=== PATIENT | female | born 1970 | race Caucasian/White ===

== ENCOUNTER 2016-11-11 22:34 | Emergency (ER) | payer OTHER ==
[~2016-11-11] VITALS: Ht 160 cm; Wt 46.3 kg
[~2016-11-11 22:34] MED LIST: LIORESAL 10MG T10 MG PO; MOTRIN 600 MG600 MG PO; PERCOCET 325 MG1 TA2 PO
--- NOTE | 2016-11-12 00:39 | ED DYSPNEA/ASTHMA COMPLAINT ---
History of Present Illness General Chief Complaint: General Adult Stated Complaint: PT IS HAVING A PROBLEM BREATHING Source: patient, family Exam Limitations: no limitations Vital Signs & Intake/Output Vital Signs & Intake/Output Vital Signs Date Time Temp Pulse Resp B/P B/P Pulse O2 O2 Flow FiO2 Mean Ox Delivery Rate 11/12 0153 98.1 76 16 122/76 97 Room Air 11/12 0108 98 Room Air 11/11 2240 98.1 80 18 129/74 98 Room Air ED Intake and Output 11/12 0000 11/11 1200 Intake Total Output Total Balance Patient 102 lb Weight Allergies Coded Allergies: MDX - PCN (penicillin) (PCN (PENICILLIN)) (Intermediate, HIVES 08/06/14) Reconcile Medications Baclofen (Lioresal) 10 MG TABLET 1 TAB PO TIDPRN PRN muscle strain Ibuprofen (Motrin 600 MG Tab) 600 MG TABLET 1 TAB PO Q6P PRN PAIN OXYCODONE HCL/ACETAMINOPHEN (Percocet 5-325 MG Tablet) 325 MG/5 MG TAB 1-2 TAB PO Q4-6 PRN PRN PAIN Triage Note: PT STATES THAT SHE FELL ON 10/21 AND HURT HER L RIB CAGE, WAS SEEN 3 X AT [facility] AND HAD CXR WHICH WAS NEGATIVE,.PT STATES THAT SHE CONTINUES TO HAVE PAIN AND FEELS SOB, O2 SAT 98 % ON RA. PT STATES THAT SHE IS NOT GETTING THE ANSWERS SHE WANTS Triage Nurses Notes Reviewed? yes Onset: Abrupt Duration: week(s):, waxing and waning Timing: single episode today Activities at Onset: fall Modifying Factors: Improves With: pain medication. Associated Symptoms: left rib cage pain : No Patient currently breastfeeds: No HPI: 46-year-old woman in prior good health presents with left lower rib cage discomfort. She states that she fell at work on October 21. She developed pain on the left side of her chest wall afterwards. She had 2 sets of x-rays that were all negative for fractures or pneumothorax. She presents tonight with continued throbbing sharp left lower rib cage pain. Her pain does not radiate. It is not associated with fever or chills nausea vomiting or diarrhea. Past History Travel History Traveled to [place] past 21 day No Medical History Any Pertinent Medical History? see below for history Neurological: NONE EENT: NONE Cardiovascular: NONE Respiratory: NONE Gastrointestinal: NONE Hepatic: NONE Renal: NONE Musculoskeletal: NONE Psychiatric: NONE Blood Disorders: NONE Cancer(s): NONE BIOLOGY SPECIMEN TECHNICIAN/Reproductive: NONE Tetanus Vaccine: Surgical History Surgical History: none Psychosocial History What is your primary language Albanian Tobacco Use: Current Daily Use Daily Tobacco Use Amount/Type: => 5 Cigarettes daily ETOH Use: denies use Illicit Drug Use: denies illicit drug use Family History Hx Contributory? No Review of Systems Review of Systems Constitutional: Reports: no symptoms. EENTM: Reports: no symptoms. Respiratory: Reports: no symptoms. Cardiovascular: Reports: no symptoms. GI: Reports: no symptoms. Genitourinary: Reports: no symptoms. Musculoskeletal: Reports: no symptoms. Skin: Reports: no symptoms. Neurological/Psychological: Reports: no symptoms. Hematologic/Endocrine: Reports: no symptoms. Immunologic/Allergic: Reports: no symptoms. All Other Systems: Reviewed and Negative Physical Exam Physical Exam General Appearance: well developed/nourished, mild distress Head: atraumatic, normal appearance Eyes: Bilateral: normal appearance. Ears, Nose, Throat: normal pharynx Neck: normal inspection, supple, full range of motion Respiratory: normal breath sounds, left sided rib cage tenderness to palpation. Cardiovascular: regular rate/rhythm, edema, gallop, JVD, murmur, normal peripheral pulses Gastrointestinal: normal bowel sounds, soft, non-tender Extremities: normal inspection Neurologic/Psych: no motor/sensory deficits, awake, alert, oriented x 3 Skin: intact, normal color, warm/dry Core Measures ACS in differential dx? No Severe Sepsis Present: No Septic Shock Present: No Progress Differential Diagnosis: rib fracture, rib cage injury Plan of Care: Discussed at great length. Patient's has had multiple negative x-rays. Initial ED EKG: none Departure Departure Disposition: HOME OR SELF CARE Condition: Stable Clinical Impression Primary Impression: Contusion of rib on left side Referrals: EBER KAT,MARIA ESTHER (PCP/Family) Departure Forms: Customer Survey General Discharge Information Comments benign exam. xrays negative x 2 by her report. [facility] pmd. Critical Care Note Critical Care Note Critical Care Time: non-applicable
[2016-11-12 01:53] VITALS: BP 122/76
== END 2016-11-12 01:55 ==
LOC: ERH 22:34
DX: S20.212A Contusion of left front wall of thorax, initial encounter (principal); W19.XXXA Unspecified fall, initial encounter; Y92.9 Unspecified place or not applicable; Y93.9 Activity, unspecified